=== PATIENT | male | born 1970 | race Caucasian/White ===

== ENCOUNTER 2018-05-05 21:22 | Emergency (ER) | payer OTHER ==
[2018-05-05 21:28] VITALS: BP 143/88
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
[2018-05-05] MEDS ORDERED: ULTRAM50 M1 PO (23:32)
[2018-05-05] MEDS ORDERED: IBUPROFEN600 M1 PO (23:32)
[2018-05-05] MEDS ORDERED: BACLOFEN10 M1 PO (23:32)
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
== END 2018-05-05 23:51 ==
LOC: ERH 21:22
DX: S80.811A Abrasion, right lower leg, initial encounter (principal); S80.812A Abrasion, left lower leg, initial encounter; T14.8XXA Other injury of unspecified body region, initial encounter; V89.2XXA Person injured in unspecified motor-vehicle accident, traffic, initial encounter
CPT/HCPCS: 73590-LT; 73590-RT